=== PATIENT | female | born 1935 | race Native Hawaiian/Other Pacific Islander ===

== ENCOUNTER 2017-03-25 07:55 | Outpatient (CLI) | payer OTHER | END 2017-03-25 09:15 | disposition home or self-care (01) | LOC: MAMMO 07:55 | DX: Z12.31 Encounter for screening mammogram for malignant neoplasm of breast (principal) ==

== ENCOUNTER 2021-01-17 10:00 | Outpatient (CLI) | payer OTHER ==
[2021-01-17 10:16] LABS: PLATELET COUNT 230 K/uL (152-353)
== END 2021-01-17 19:58 | disposition home or self-care (01) ==
LOC: LABW 10:00
PROVIDERS: ATTEND Internal Medicine Gastroenterology
DX: K62.5 Hemorrhage of anus and rectum (principal)
CPT/HCPCS: 36415; 85027

== ENCOUNTER 2021-09-23 07:49 | Outpatient (CLI) | payer OTHER | END 2021-09-23 19:39 | disposition home or self-care (01) | LOC: RAD 07:49 | PROVIDERS: ATTEND Internal Medicine | DX: Z13.820 Encounter for screening for osteoporosis (principal); N95.1 Menopausal and female climacteric states; N95.8 Other specified menopausal and perimenopausal disorders ==

== ENCOUNTER 2022-02-27 09:11 | Outpatient (CLI) | payer OTHER | END 2022-02-27 22:08 | disposition home or self-care (01) | LOC: RAD 09:11 | PROVIDERS: ATTEND Internal Medicine | DX: R05.9 Cough, unspecified (principal) ==